=== PATIENT | male | born 1995 | race Caucasian/White ===

== ENCOUNTER 2019-10-03 10:34 | Emergency (ER) | payer OTHER ==
[2019-10-03 10:40] VITALS: BP 136/73; PULSE 87; TEMP 98.4; BMI 30.4
[2019-10-03] MEDS ORDERED: SILVER SULFADIAZINE 1% TOP CREAM 50 GM JAR TP ONE ×2 (12:02→12:07)
[2019-10-03] MEDS ORDERED: LIDOCAINE HCL 1%, 10 MG/ML (20ML VIAL) ONE (12:26)
[2019-10-03] MEDS ORDERED: LIDOCAINE HCL 1%, 10 MG/ML (50 mL VIAL) INF ONE (12:26)
[2019-10-03] MEDS ORDERED: MUPIROCIN 2% TOPICAL OINTMENT 22 GM TUBE TP ONE (12:27)
--- NOTE | 2019-10-03 12:38 | PDOC ---
History of Present Illness - General Chief Complaint: Injury Stated Complaint: FINGERS INJURY Time Seen by Provider: 10/03/19 11:18 History Source: Patient Exam Limitations: No Limitations Past History - Travel Traveled outside of the country in the last 30 days: No Close contact w/someone who was outside of country & ill: No - Past Medical History Allergies/Adverse Reactions: Allergies Allergy/AdvReac Type Severity Reaction Status Date / Time No Known Allergies Allergy Verified 10/03/19 10:40 Home Medications: Ambulatory Orders No Home Medications 0 dose .ROUTE UTDICT 08/27/12 Cyclobenzaprine HCl [Flexeril -] 10 mg PO HS #7 tablet 03/21/16 Ibuprofen [Motrin -] 600 mg PO TID PRN #20 tablet 03/21/16 COPD: No - Psycho Social/Smoking Cessation Hx Smoking Status: No Smoking History: Never smoked Number of Cigarettes Smoked Daily: 0 Hx Alcohol Use: No Drug/Substance Use Hx: No Review of Systems - Review of Systems Able to Perform ROS?: Yes Comments:: 10/03/19 12:37 CONSTITUTIONAL: Absent: fever, chills, diaphoresis, generalized weakness, malaise, loss of appetite MUSCULOSKELETAL: Absent: myalgia, arthralgia, joint swelling SKIN: Present: Garza absent: rash, itching, pallor NEUROLOGIC: Absent: headache, focal weakness or paresthesias, dizziness, unsteady gait, seizure, mental status changes, bladder or bowel incontinence PSYCHIATRIC: Absent: anxiety, depression, suicidal or homicidal ideation, hallucinations Is the patient limited Bangladeshi proficient: No *Physical Exam - Vital Signs Last Vital Signs Temp Pulse Resp BP Pulse Ox 98.4 F 87 136/73 98 10/03/19 10:37 10/03/19 10:37 10/03/19 10:37 10/03/19 10:37 - Physical Exam 10/03/19 12:37 GENERAL: The patient is awake, alert, and fully oriented, in no acute distress. HEAD: Normal with no signs of trauma. EYES: Pupils equal, round and reactive to light, extraocular movements intact, sclera anicteric, conjunctiva clear. EXTREMITIES: Normal range of motion, no edema. NEUROLOGICAL: Normal speech, normal gait. PSYCH: Normal mood, normal affect. SKIN: Friction garza present to the R 3rd-5th fingers with a blister present on the 5th finger, L 1st through 5th fingers on the palmar aspect. Warm, Dry, normal turgor, no rashes or lesions noted. ED Treatment Course - Medications Given in the ED: ED Medications Discontinued Medications Generic Name Dose Route Start Last Admin Trade Name Kandis PRN Reason Stop Dose Admin Lidocaine HCl 10 ml 10/03/19 12:26 10/03/19 12:31 Xylocaine 1% INF 10/03/19 12:27 10 ml ONCE ONE Administration Silver Sulfadiazine 1 applic 10/03/19 12:02 10/03/19 12:09 Silvadene - TP 10/03/19 12:03 1 unit ONCE ONE Administration Medical Decision Making - Medical Decision Making 10/03/19 12:59 The patient is a 24-year-old male with no past medical history who presents to the ER today for friction garza to his hands. He states he was climbing a rope at the gym. When he got to the top he panicked and slid down the rope causing friction garza to the palmar aspects of his hands bilaterally. The patient is right-handed. the patient states his tetanus is up to date. A/P: Friction garza On exam multiple friction garza present to the hands. Right hand with friction garza on the palmar aspect of the third fourth and fifth digits. The third and fourth digits are approximately 1 cm x 1 cm. The right fifth finger has a blister. Left hand has 1 x 2 cm wounds to the first through fifth digits on the palmar aspect. Wounds were soaked in lidocaine for numbing. Patient then washed his hands with surgical scrub. skin was debrided. Mupirocin placed on the garza and nonstick dressing was placed. Plastic follow-up given. Patient told to follow-up within the week. Discharge home with strict return precautions. I discussed the physical exam findings, ancillary test results and final diagnoses with the patient. I answered all of the patient's questions. The patient was satisfied with the care received and felt comfortable with the discharge plan and treatment plan. The Patient agrees to follow up with the primary care physician/specialist within 24-72 hours. Return precautions were given. Discharge - Discharge Information Problems reviewed: Yes Clinical Impression/Diagnosis: Friction burn Condition: Stable Disposition: HOME - Admission No - Follow up/Referral Referrals: [facility] Wooten [Non Staff, Medical] - Александр Fraire MD [Staff Physician] - - Patient Discharge Instructions Patient Printed Discharge Instructions: DI for Garza Additional Instructions: You were treated for your friction garza today. Please apply the mupirocin cream twice a day to help prevent infection. Keep your hands as clean and dry as possible. You may wash them with regular soap and water as well to prevent infection. Apply the Silvadene ointment once a day until the blisters go away. Please follow-up with plastic surgery/hand specialty to make sure it is healing appropriately within the week. A referral for Dr. Wooten and Dr. Fraire has been provided to you Return to the ER for increased pain to the sites, purulent drainage, redness around the sites, or if you have any changes in your symptoms. - Post Discharge Activity
== END 2019-10-03 14:01 | disposition home or self-care (01) ==
LOC: JERFT 10:34
PROC: 2W2SX4Z Dressing of Right Foot using Bandage (ICD-10-PCS; principal; 2019-10-03)
PROC: 2W2FX4Z Dressing of Left Hand using Bandage (ICD-10-PCS; 2019-10-03)
DX: T23.052A Burn of unspecified degree of left palm, initial encounter (principal); T23.051A Burn of unspecified degree of right palm, initial encounter; T79.8XXA Other early complications of trauma, initial encounter; Y93.B9 Activity, other involving muscle strengthening exercises; Y92.39 Other specified sports and athletic area as the place of occurrence of the external cause; Y99.8 Other external cause status
CPT/HCPCS: 16020; 99282-25